=== PATIENT | female | born 1960 | race Caucasian/White ===

== ENCOUNTER 2024-05-14 05:40 | Day surgery (SDC) | payer BC ==
[~2024-05-14 05:40] MED LIST: Sodium Chloride 0.9% 10 ML Syringe FLUSH PRN; Sodium Chloride 0.9% 10 ML Syringe FLUSH SCH
[2024-05-14] MEDS ORDERED: Propofol 200 MG/20 ML SDV ONE (06:06)
[2024-05-14] MEDS ORDERED: Midazolam 1 MG/ML 2 ML SDV ONE (06:06)
[2024-05-14] MEDS ORDERED: Ondansetron 4 MG/2 ML SDV ONE (06:09)
[2024-05-14] MEDS ORDERED: Lidocaine 1% 5 ML VIAL ONE (06:09)
[2024-05-14] MEDS ORDERED: Ketorolac 30 MG/ML SDV ONE (06:09)
[2024-05-14] MEDS ORDERED: Dexamethasone 4 MG/ML 5 ML MDV ONE (06:09)
[2024-05-14] MEDS: Lactated Ringers 1,000 ML IV SCH (06:10)
[2024-05-14] MEDS ORDERED: Ropivacaine 0.5% 5 MG/ML 30 ML SDV ONE (06:25)
[2024-05-14] MEDS ORDERED: ceFAZolin 2 GM Vial ONE (06:33)
[2024-05-14] MEDS: Pregabalin 25 MG Cap PO ONE (06:37)
[2024-05-14] MEDS: Acetaminophen 325 MG Tab PO ONE (06:37)
[2024-05-14] MEDS: oxyCODONE ER 10 MG TAB.ER PO ONE (06:38)
[2024-05-14] MEDS ORDERED: ePHEDrine 50 MG/ML SDV ONE (06:58)
[2024-05-14] MEDS ORDERED: Lactated Ringers 1,000 ML ONE (07:06)
[2024-05-14] MEDS ORDERED: fentaNYL 100 MCG/2 ML SDV IVPUSH PRN (07:48)
[2024-05-14] MEDS ORDERED: HYDROmorphone 0.5 MG/0.5 ML Syringe IVPUSH PRN (07:48)
[2024-05-14] MEDS ORDERED: Ondansetron 4 MG/2 ML SDV IVPUSH PRN (07:48)
[2024-05-14] MEDS: Tranexamic Acid 1,000 MG/10 ML Vial ONE (07:56)
[2024-05-14] MEDS: Morphine 8 MG, EPINEPHrine 0.3 MG, Cefuroxime 750 MG, Ketorolac 30 MG, Sodium Chloride ... PRN (07:57)
[2024-05-14] MEDS: Bupivacaine 0.25% 10 ML SDV ONE (07:57)
[2024-05-14] MEDS: Triamcinolone Acetonide 40 MG/ML 1 ML SDV ONE (07:57)
[2024-05-14] MEDS: Vancomycin 1 GM SDV ONE (07:57)
[2024-05-14] MEDS ORDERED: oxyCODONE 5 MG Tab PO PRN (09:12)
[2024-05-14] MEDS: oxyCODONE 5 MG Tab PO PRN (12:50)
== END 2024-05-14 15:20 | disposition home or self-care (01) ==
LOC: JD.SDS 05:40
PROVIDERS: ATTEND Orthopaedic Surgery
DX: M17.0 Bilateral primary osteoarthritis of knee (principal); E78.00 Pure hypercholesterolemia, unspecified; N32.81 Overactive bladder; Z79.899 Other long term (current) drug therapy
CPT/HCPCS: 0055T; 20610; 27447; 64450; 73560; 97110; 97161; A9270; C1713; C1776; J0171; J0665; J0690; J0697; J1100; J1885; J2250; J2270; J2405; J2704; J2795; J3301; J3370; J7120; 01402; J3490